=== PATIENT | female | born 1955 | race Caucasian/White ===

== ENCOUNTER 2020-09-13 16:45 | Outpatient (CLI) | payer OTHER, SELFPAY ==
--- NOTE | ~2020-09-13 | MM_ITS ---
EXAMINATION: MM scrn lv implant BI w xena HISTORY: Screening mammogram TECHNIQUE: Craniocaudal and mediolateral oblique 3-D tomosynthesis images with implant displacement a nd synthetic 2-D images were generated. Craniocaudal and mediolateral oblique views of the breasts wi thout implant displacement were obtained using full field digital mammography. CAD analysis was submi tted and interpreted. COMPARISON: 05/01/2012 BREAST PARENCHYMAL COMPOSITION: The breasts are almost entirely fatty. FINDINGS: There is no evidence of suspicious mass, calcification, or architectural distortion to sugg est malignancy in either breast. There has been no suspicious interval change. IMPRESSION: 1. No mammographic evidence of malignancy. 2. Recommend routine screening mammography in one year. BI-RADS Category 1: Negative Reviewed, dictated and finalized at location A.
== END 2020-09-13 16:46 | disposition home or self-care (01) ==
LOC: ANHIMG 16:48
PROVIDERS: PCP Family Medicine; Visit Provider Family Medicine
DX: Z12.31 Encounter for screening mammogram for malignant neoplasm of breast (principal)
CPT/HCPCS: 77063; 77067

== ENCOUNTER 2022-08-29 00:59 | Day surgery (SDC) | payer MEDICARE, SELFPAY ==
[2022-08-17 13:53] VITALS: BMI 34.0
[2022-08-17 14:09] VITALS: BMI 34.0
--- NOTE | 2022-08-28 16:00 | PM.HPGS ---
History of Present Illness History of Present Illness Consent: Risks, benefits, and alternatives have been discussed and questions answered. Patient agrees to proceed with procedure. Chief complaint: neoplasm screening Narrative: Alma Chaudhry is a 67 year old female who was referred for colon cancer screening. Her last colonoscopy was about 13 years ago. 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 Irritable bowel syndrome Surgical History Surgical History History of arthroscopy of left shoulder 2016 - subacromial decompression Family History Family History Other Heart disease Hypertension Social History Social History Smoking packs per day: 0.5 Smoking cigarettes per day: 10.0 Years smoked: 15 Smoking pack-years: 7.50 Smoking status: Former smoker Tobacco type: cigarettes Alcohol intake: current Drinks per week: 2 Substance use: never Substance use type: does not use Living arrangements: alone Occupation/Education: occupation Additional occupation/education comments: RN Gender identity (if verbalized by the patient): Female Spiritual care concerns: No Meds Home Medications and Allergies Home Medications Medication Instructions Recorded Confirmed Type cholecalciferol (vitamin D3) 50 50 mcg PO DAILY 03/15/21 08/29/22 History mcg (2,000 unit) tablet magnesium 250 mg tablet 250 mg PO DAILY 03/15/21 08/29/22 History diclofenac sodium 75 mg 75 mg PO BID PRN pain #60 tabs 10/23/21 08/29/22 Rx tablet,delayed release diazepam 5 mg tablet (Valium) 5 mg PO TID PRN muscle spasm #40 10/31/21 08/29/22 Rx tabs tumeric 100 mg-christi 150 mg-olive 1 cap PO DAILY 07/18/22 08/29/22 History 50 mg-oreg 150 mg-caprylate capsule Allergies Allergy/AdvReac Type Severity Reaction Status Date / Time No Known Allergies Allergy Verified 08/29/22 08:10 Exam Const: General: alert Orientation/consciousness: patient oriented x3 Resp: Auscultation: clear to auscultation bilaterally Cardio: Rhythm: regular rhythm GI: GI Palp: Yes Soft to palpation and No Tenderness to palpation present (GI) Neuro: General: patient oriented x3 Assessment and Plan Assessment and plan (1) Screening for colon cancer: Code(s): Z12.11 - Encounter for screening for malignant neoplasm of colon Status: Acute Assessment and Plan: Colonoscopy with possible biopsy or polypectomy or cautery or injection of substances.
[2022-08-29 08:16] VITALS: BMI 23.1
[2022-08-29 08:19] VITALS: BP 133/65; PULSE 79; RESP 16; TEMP 36.4; O2SAT 100
[2022-08-29] MEDS: LACTATED RINGERS 1,000 ML 150 ML IV CONT (08:22)
--- NOTE | 2022-08-29 08:57 | WPDANESEPPF ---
Anes - Initial Pre Proc Eval Procedure: Operation Date: 08/29/22 09:30 Proposed Procedures p Screening Colonoscopy - Bipin Slacedo MD Date/Time: 08/29/22 08:57 Surgeon: Bipin Salcedo MD Pre Op Diagnosis: neoplasm screening Patient Data Age: 67 Gender: F Height: 1.7 m Weight: 67 kg Last Vital Signs Temp 97.5 F L 08/29/22 08:19 Pulse 79 08/29/22 08:19 Resp 16 08/29/22 08:19 BP 133/65 08/29/22 08:19 Pulse Ox 100 08/29/22 08:19 O2 Del Method Room Air 08/29/22 08:19 Allergies Allergy/AdvReac Type Severity Reaction Status Date / Time No Known Allergies Allergy Verified 08/29/22 08:10 Home Medications Medication Instructions Recorded Confirmed Type cholecalciferol (vitamin D3) 50 50 mcg PO DAILY 03/15/21 08/29/22 History mcg (2,000 unit) tablet magnesium 250 mg tablet 250 mg PO DAILY 03/15/21 08/29/22 History diclofenac sodium 75 mg 75 mg PO BID PRN pain #60 tabs 10/23/21 08/29/22 Rx tablet,delayed release diazepam 5 mg tablet (Valium) 5 mg PO TID PRN muscle spasm #40 10/31/21 08/29/22 Rx tabs tumeric 100 mg-christi 150 mg-olive 1 cap PO DAILY 07/18/22 08/29/22 History 50 mg-oreg 150 mg-caprylate capsule Patient hx anesthesia problems: none Family hx anesthesia problems: none Results Review: All pre-operative results and documents have been reviewed as part of the pre-operative evaluation. 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 Irritable bowel syndrome Surgical History Surgical History History of arthroscopy of left shoulder 2016 - subacromial decompression Family History Family History Other Heart disease Hypertension Social History Social History Smoking packs per day: 0.5 Smoking cigarettes per day: 10.0 Years smoked: 15 Smoking pack-years: 7.50 Smoking status: Former smoker Tobacco type: cigarettes Alcohol intake: current Drinks per week: 2 Substance use: never Substance use type: does not use Living arrangements: alone Occupation/Education: occupation Additional occupation/education comments: RN Gender identity (if verbalized by the patient): Female Spiritual care concerns: No Anes - Eval Final PreProcedure Day of Procedure 08/29/22 08:57 Patient weight: normal Heart: regular rate and rhythm Lungs: clear to auscultation Airway: Mallampati scale class II Neurological: alert and oriented Last oral intake: >/= 8 hours ASA classification: II Emergent: no Anesthetic plan: proceed Anesthesia type and monitoring: general GIVS and standard monitoring Results Review: All pre-operative results and documents have been reviewed as part of the pre-operative evaluation. Informed Consent: The patient's anesthetic plan and its attendant risks and benefits were discussed with the patient/family/POA. Questions were solicited and answers provided to the satisfaction of the patient/family/POA.
[2022-08-29 09:39] VITALS: BP 84/56; PULSE 76; RESP 24; O2SAT 97
[2022-08-29 09:49] VITALS: BP 108/55; PULSE 71; RESP 19; O2SAT 100
[2022-08-29 09:59] VITALS: BP 123/77; PULSE 74; RESP 14; O2SAT 100
== END 2022-08-29 10:03 | disposition home or self-care (01) ==
PROVIDERS: PCP Family Medicine; Visit Provider Internal Medicine Gastroenterology
PROC: 0DJD8ZZ Inspection of Lower Intestinal Tract, Via Natural or Artificial Opening Endoscopic (ICD-10-PCS; CPT 45378; principal; 2022-08-29 09:30)
DX: Z12.11 Encounter for screening for malignant neoplasm of colon (principal); K64.8 Other hemorrhoids; K62.1 Rectal polyp; K58.9 Irritable bowel syndrome, unspecified; Z87.891 Personal history of nicotine dependence
CPT/HCPCS: 45380; 88305; J2704; J7120

== ENCOUNTER 2022-10-30 13:28 | Outpatient (CLI) | payer MEDICARE, SELFPAY ==
--- NOTE | ~2022-10-30 | US_ITS ---
US abdomen complete EXAMINATION: US Abdomen Complete INDICATION: Renal cysts. PROCEDURE: Realtime High Resolution abdomen ultrasound. COMPARISON: CT dated 03/10/2020 FINDINGS: Gallbladder within normal limits. No gallstones, pericholecystic fluid, gallbladder wall t hickening or biliary dilatation. Common bile duct measures 3 mm. Liver echotexture is increased, consistent with fatty infiltration.. Pancreas within normal limits. Pancreatic tail is obscured by bowel gas. Spleen is unremarkeable. Renal echotexture is within norm al limits bilaterally without hydronephrosis, contour deforming mass or renal stone. Right kidney angelique sures 9.3 cm. Left kidney measures 10 cm. There is a left renal cyst measuring 4.9 cm. Visualized aspects of the aorta and IVC are within normal limits. Portal vein is patent. No sonograph ic Oneal's sign indicated by the technologist. IMPRESSION: 1: Hepatic steatosis. 2: Left renal cyst measuring 4.9 cm. Reviewed, dictated and finalized at location L.
--- NOTE | ~2022-10-30 | US_ITS ---
US thyroid INDICATION: Nontoxic thyroid nodule TECHNIQUE: Real-time sonographic images of the thyroid gland were obtained. COMPARISON: No prior studies for comparison. FINDINGS: The right thyroid lobe measures 5.5 x 1.8 x 2 cm. The left thyroid lobe measures 4.9 x 1.9 x 1.7 cm. Isthmus measures 4 mm. Thyroid echotexture is diffusely heterogeneous without discrete mas s. No discrete nodules identified. Increased vascular flow is present. IMPRESSION: 1. Enlarged heterogeneous hypervascular thyroid gland without discrete mass. Reviewed, dictated and finalized at location L.
== END 2022-10-30 13:29 | disposition home or self-care (01) ==
PROVIDERS: PCP Family Medicine; Visit Provider Physician Assistant
DX: K76.0 Fatty (change of) liver, not elsewhere classified (principal); N28.1 Cyst of kidney, acquired; E04.1 Nontoxic single thyroid nodule; E04.9 Nontoxic goiter, unspecified
CPT/HCPCS: 76536; 76700

== ENCOUNTER → 2023-01-31 13:20 | Outpatient (CLI) | payer MEDICARE, SELFPAY ==
--- NOTE | ~2023-01-31 | MM_ITS ---
EXAMINATION: MM scrn lv implant BI w xena HISTORY: Screening mammogram TECHNIQUE: Craniocaudal and mediolateral oblique 3-D tomosynthesis images with implant displacement a nd synthetic 2-D images were generated. Craniocaudal and mediolateral oblique views of the breasts wi thout implant displacement were obtained using full field digital mammography. CAD analysis was submi tted and interpreted. COMPARISON: 09/13/2020, 03/10/2012 BREAST PARENCHYMAL COMPOSITION: The breasts are almost entirely fatty. FINDINGS: There is no evidence of suspicious mass, calcification, or architectural distortion to sugg est malignancy in either breast. There has been no suspicious interval change. IMPRESSION: 1. No mammographic evidence of malignancy. 2. Recommend routine screening mammography in one year. BI-RADS Category 1: Negative Reviewed, dictated and finalized at location A.
--- NOTE | ~2023-01-31 | DEXA_ITS ---
Bone Density Report Name: CHEIKH HOLLINGSWORTH Age: 67 Sex: Female Ethnicity: White Date of : 1955 Indication: postmenopausal; screening for osteoporosis; parental hip fracture; Referring Provider: Jayant Martinez Study: Bone densitometry was performed. Exam Date: January 31, 2023 Accession number: [id number] Bone Density: Region BMD T-score Z-score Classification AP Spine (L1-L4) 1.001 -0.4 1.4 Normal Femoral Neck (Left) 0.705 -1.3 0.3 Osteopenia Total Hip (Left) 0.861 -0.7 0.6 Normal Femoral Neck (Right) 0.698 -1.4 0.2 Osteopenia Total Hip (Right) 0.921 -0.2 1.1 Normal Total Hip Mean 0.891 -0.5 0.9 Normal World Health Organization criteria for BMD impression classify patients as: Normal (T-score at or above -1.0), Osteopenia (T-score between -1.0 and -2.5), or Osteoporosis (T-score at or below -2.5). 10-year Fracture Risk(1): Major Osteoporotic Fracture 16% Hip Fracture 1.0% Reported Risk Factors: [place] (), Neck BMD=0.698, BMI=23.7, parental fracture (1) FRAX(R) Version 3.08. Fracture probability calculated for an untreated patient. Fracture probability may be lower if the patient has received treatment. Clinical Information Provided by Patient: Parent has had a hip fracture Has used the following medications: Vitamin D Patient maximum height was 67 Menopause Age: 52 No regular weight bearing exercise Drinks caffeinated beverages Onset of menses at age 15 Number of children 4 Impression: The patient has low bone mass, based on the Right Femoral Neck T-score. The patient has an estimated ten-year risk of hip fracture of 1% and an estimated ten-year risk of major fracture of 16%, based on the WHO FRAX algorithm. The patient has risk factors, including: parental hip fracture. Discussion: BONE DENSITY IS LOW AT ONE OR MORE SKELETAL SITES. This patient's lowest T-score is low at one or more skeletal sites. It meets the World Health Organization's (WHO) criteria for ?low bone mass? (T-score between -1.0 and -2.5). The patient's 10-year risk of fracture as calculated by FRAX is less than the threshold where pharmacological therapy is recommended by the National Osteoporosis Foundation (NOF). However, all treatment decisions require clinical judgment and consideration of individual patient factors, including patient preferences, comorbidities, previous drug use, risk factors not captured in the FRAX model (e.g., frailty, falls, vitamin D deficiency, increased bone turnover, interval significant decline in bone density) and possible under or overestimation of fracture risk by FRAX. The patient should follow a healthful lifestyle (good nutrition with adequate calcium and vitamin D, and appropriate weight-bearing exercise). Follow-Up: Consider repeating this study in 2 to 3 years to
== END ==
PROVIDERS: PCP Family Medicine; Visit Provider Physician Assistant
DX: Z12.31 Encounter for screening mammogram for malignant neoplasm of breast (principal); Z78.0 Asymptomatic menopausal state; M85.89 Other specified disorders of bone density and structure, multiple sites
CPT/HCPCS: 77063; 77067; 77080

== ENCOUNTER 2023-01-31 15:42 | Outpatient (CLI) | payer MEDICARE, SELFPAY ==
[2023-02-01 12:11] LABS: Kit Draw Collected
== END 2023-01-31 15:43 | disposition home or self-care (01) ==
LOC: ANHGOSHLAB 15:43
PROVIDERS: PCP Family Medicine; Visit Provider Family Medicine
DX: M85.80 Other specified disorders of bone density and structure, unspecified site (principal); Z78.0 Asymptomatic menopausal state
CPT/HCPCS: 36415

== ENCOUNTER 2024-07-15 15:19 | Outpatient (CLI) | payer MEDICARE, SELFPAY ==
--- NOTE | ~2024-07-15 | XR_ITS ---
HISTORY: M54.2 - Cervicalgia COMPARISON: None TECHNIQUE: 4 views of the cervical spine were performed including flexion and extension views FINDINGS: Visualization of the cervical spine to the superior endplate of T1. Straightening of the normal curvature of the cervical spine is identified. No prevertebral soft tissue swelling is appreciated. No acute compression fracture is noted. The dens is equidistant between the pillars, without asymmetry. Air column within the trachea is midline. No anterolisthesis or retrolisthesis is identified from flexion to neutral to extension views. Degenerative disease is noted, with osteophyte formation, disc space narrowing and endplate sclerosis . The visualized portions of the bilateral upper lung cuevas are unremarkable. IMPRESSION: Degenerative disease within the cervical spine without evidence of instability on flexion and extensi on views and without acute fracture. Further evaluation may be performed with MRI, if the patient is clinically able. Reviewed, dictated and finalized at location A. AS REPAIRER IMPRESSION: Degenerative disease within the cervical spine without evidence of instability on flexion and extension views and without acute fracture. Further evaluation may be performed with MRI, if the patient is clinically able .
== END 2024-07-15 15:20 | disposition home or self-care (01) ==
LOC: GOSHIMG 15:20
PROVIDERS: PCP Family Medicine; Visit Provider Family Medicine
DX: M50.30 Other cervical disc degeneration, unspecified cervical region (principal)
CPT/HCPCS: 72050